=== PATIENT | female | born 1945 | race Caucasian/White ===

== ENCOUNTER 2019-11-16 17:23 | Emergency (ER) | payer OTHER ==
--- NOTE | 2019-11-16 17:37 | PDOC ---
History of Present Illness - General Stated Complaint: CHEST PAIN Time Seen by Provider: 11/16/19 17:37 History Source: Patient Exam Limitations: No Limitations - History of Present Illness Initial Comments: 11/16/19 17:38 74yF w PMHx CVA, afib, HTN, HLD, DM, cervical stenosis, covid PNA evan 07/04-07/27, MSSA bacteremia, pseudomonas VAP, evan sacral ulcers, chronic trach on vent presenting from [facility] w 4d intermittent L mild chest pain. Hx limited by pt's difficulty speaking w a trache. Pain not exertional/positional. Has been receiving tylenol PRN for chronic pain at the [facility]. Denies fever, cough, n/v, SOB, ABD pain, urinary/bowel mvmt changes. Evaluated on 11/12/19 for respiratory distress attributed to bronchitis, sputum cx grew proteus mirablis and Pseudomonas, DC home w azithromycin Past History - Medical History Allergies/Adverse Reactions: Allergies Allergy/AdvReac Type Severity Reaction Status Date / Time No Known Allergies Allergy Verified 11/12/19 23:24 Home Medications: Ambulatory Orders Acetaminophen 650 mg GT Q6H PRN 11/16/19 Apixaban [Eliquis] 5 mg GT BID 11/16/19 Ascorbate Calcium [Vitamin C] 500 mg GT DAILY 11/16/19 Aspirin 81 mg GT DAILY 11/16/19 Atorvastatin Ca [Lipitor] 20 mg GT HS 11/16/19 Azithromycin 250 mg GT DAILY 11/16/19 Lactobacillus Acidophilus [Acidophilus] 1 each GT DAILY 11/16/19 Multivitamin [Multivitamins] 1 each GT DAILY 11/16/19 Silver Sulfadiazine 1% Top Cr [Silvadene -] 1 applic TP DAILY 11/16/19 Zinc Sulfate [Zinc-220] 220 mg GT DAILY 11/16/19 - Psycho-Social/Smoking History Smoking History: Never smoked Review of Systems - Review of Systems Able to Perform ROS?: No (limited vocab) *Physical Exam - Physical Exam General Appearance: Yes: Nourished, Appropriately Dressed, Mild Distress HEENT: positive: EOMI, TYRELL, Normal Voice, Hearing Grossly Normal. negative: Scleral Icterus (R), Scleral Icterus (L) Respiratory/Chest: positive: Chest Tender (L chest), Lungs Clear, Normal Breath Sounds, Other (connected to trache). negative: Respiratory Distress, Crackles, Rales, Rhonchi, Stridor, Wheezing Cardiovascular: positive: Regular Rhythm, Regular Rate, S1, S2. negative: Murmu r Gastrointestinal/Abdominal: positive: Normal Bowel Sounds, Flat, Soft, Other (peg tube not infected). negative: Tender, Organomegaly Extremity: negative: Pedal Edema Integumentary: positive: Normal Color, Warm, Other (2x 3cm decubitus ulcers stage 3, stage 4, contracted hands) Neurologic: positive: Fully Oriented, Alert, Normal Response, Responsive Heart Score/ECG Review - History History: Slightly suspicious - Electrocardiogram EKG: Normal - Age Age: >/= 65 - Risk Factors Risk Factors Heart Score: Yes Hx Hypercholesterolemia, Yes Hx Hypertension, Yes Hx Diabetes Based on the list above the patient has:: >/=3 risk factors or Hx atherosclerotic disease - Troponin Troponin: </= normal limit - Score Heart Score - Total: 4 ED Treatment Course - LABORATORY CBC & Chemistry Diagram: 11/16/19 19:00 11/16/19 19:00 Medical Decision Making - Medical Decision Making 11/16/19 19:05 EKG - sinus tachycardia, HR 105, QTc 443, no ST changes CXR - clear lung walker WBC 19 w L shift, lactic 3.5 --- 74yF w PMHx CVA, afib, HTN, HLD, DM, cervical stenosis, covid PNA evan 07/04-07/27, MSSA bacteremia, pseudomonas VAP, evan sacral ulcers, chronic trach on vent presenting from [facility] w 4d intermittent L mild chest pain. 1. Chest pain likely ACS (HEART 4, 1st trop neg) vs costocondritis (chest tender to palptation) vs bronchitis 2. Sepsis (HR 117, RR 24, BP 91/58, lactic 3.5) without clear source of infection. decubitus ulcer vs tracheitis vs UTI (pos UA). No sign of PNA on CXR 3. Pt started making airway sounds on vent and complaining of difficulty breathing despite numerous suctioning and adjusting vent settings by RT. Still satting 100% on vent assist control RR 14/TV 400/ O2 35%/PEEP 5 Given tylenol, vanc, zosyn, 30mL/kg NS. Alternates between spontaneous vent and assist control Transfer to [facility] for possible tracheitis requiring ENT evaluation/management for chest pain, ACS r/o HEART 4, bounce back, sepsis, UA Accepted by ENT Dr Sanchez PCP Jenniffer Discharge - Discharge Information Problems reviewed: Yes Clinical Impression/Diagnosis: Bronchitis Chest pain Qualifiers: Chest pain type: unspecified Qualified Code(s): R07.9 - Chest pain, unspecified Sepsis Qualifiers: Sepsis type: sepsis due to unspecified organism Sepsis acute organ dysfunction status: without acute organ dysfunction Qualified Code(s): A41.9 - Sepsis, unspecified organism Decubitus ulcer Qualifiers: Pressure injury location: buttock Pressure injury stage: stage 4 Laterality: left Qualified Code(s): L89.324 - Pressure ulcer of left buttock, stage 4 Condition: Improved - Follow up/Referral - Patient Discharge Instructions - Post Discharge Activity
[2019-11-16] MEDS ORDERED: ACETAMINOPHEN 500 MG TABLET (FP) PEG ONE (18:11)
[2019-11-16] MEDS ORDERED: ACETAMINOPHEN 1000 MG/100 ML VIAL (NON FORMULARY) IVPB ONE (19:26)
[2019-11-16 19:31] LABS: BASO % 0.4 % (0-2.0); EOS % 0.2 % (0-4.5); HEMOGLOBIN 11.7 GM/dL (10.7-15.3); LYMPH % 10.9 % (8-40); MCH 25.1 pg (25.7-33.7); MCHC 31.7 g/dl (32.0-36.0); MEAN CELL VOLUME 79.3 fl (80-96); MEAN PLT VOLUME 9.1 fl (7.5-11.1); MONO % 4.5 % (3.8-10.2); PLATELET COUNT 455 K/MM3 (134-434); RBC 4.66 M/mm3 (3.60-5.2); RDW 18.3 % (11.6-15.6); WHITE BLOOD COUNT 19.2 K/mm3 (4.0-10.0)
[2019-11-16 19:40] LABS: INR 1.44 (0.83-1.09); PROTHROMBIN TIME (PATIENT) 17.1 SEC (9.7-13.0)
[2019-11-16] MEDS ORDERED: ACETAMINOPHEN INJECTION 100 ML IVPB ONE (19:42)
[2019-11-16 19:43] LABS: ACTIVATED PTT 31.9 SECONDS (25.2-36.5)
[2019-11-16 19:45] VITALS: BMI 33.1
[2019-11-16] MEDS ORDERED: PIPERACILLIN/TAZOB 4.5 GM 4.5 GM in DEXTROSE 5%-WATER 100 ML IVPB ONE (19:48)
[2019-11-16] MEDS ORDERED: VANCOMYCIN 1 GM in D5W (PRE-DOCKED) 1,000 MG/250 ML IVPB ONE (19:48)
[2019-11-16] MEDS ORDERED: SODIUM CHLORIDE IV ONE (19:50)
[2019-11-16] MEDS ORDERED: PIPERACILLIN/TAZOB 4.5 GM 4.5 GM/100 ML BAG IVPB ONE (19:53)
[2019-11-16] MEDS ORDERED: VANCOMYCIN 1 GRAM (PRE-DOCKED) 1,000 MG/250 ML BAG IVPB ONE (19:53)
[2019-11-16 19:55] LABS: VENOUS PH 7.354 (7.310-7.410)
[2019-11-16 19:58] LABS: ALBUMIN 3.4 g/dl (3.4-5.0); BILIRUBIN,TOTAL 0.2 mg/dL (0.2-1); CALCIUM 9.4 mg/dL (8.5-10.1); CREATININE 0.7 mg/dL (0.55-1.3); TOT PROT 8.1 g/dl (6.4-8.2)
--- NOTE | 2019-11-16 20:13 | PDOC ---
Attending Attestation - Resident Resident Name: Brandon Briggs - ED Attending Attestation I have performed the following: I have examined & evaluated the patient, The case was reviewed & discussed with the resident, I agree w/resident's findings & plan - HPI HPI: 11/16/19 20:10 see resident hpi - Physicial Exam PE: 11/16/19 20:11 see resident exam - Critical Care Time Total Critical Care Time: 60 Critical Care Statement: The care of this patient involved high complexity decision making to prevent further life threatening deterioration of the patient's condition and/or to evaluate & treat vital organ system(s) failure or risk of failure. - Medical Decision Making 11/16/19 20:11 74-year-old female, [facility]ambulatory from a [facility] with complaints of chest pain and recent visit to the emergency department discharged with diagnosis of bronchitis Patient found to have fever, elevated white blood cell count Chest x-ray shows no focal infiltrate Pending remainder of sepsis evaluation including lactic acid and urinalysis will cover with Zosyn and vancomycin due to tracheal cultures positive for Pseudomonas and Proteus Plan for admission to medical service Discharge - Discharge Information Problems reviewed: Yes Clinical Impression/Diagnosis: Bronchitis Chest pain Qualifiers: Chest pain type: unspecified Qualified Code(s): R07.9 - Chest pain, unspecified Sepsis Qualifiers: Sepsis type: sepsis due to unspecified organism Sepsis acute organ dysfunction status: without acute organ dysfunction Qualified Code(s): A41.9 - Sepsis, unspecified organism Decubitus ulcer Qualifiers: Pressure injury location: buttock Pressure injury stage: stage 4 Laterality: left Qualified Code(s): L89.324 - Pressure ulcer of left buttock, stage 4 Condition: Improved - Follow up/Referral - Patient Discharge Instructions - Post Discharge Activity
[2019-11-16 21:38] LABS: EPI CELLS 29 /uL (0-25.1); HYALINE CASTS 1 /uL (0-3.1); URINE APPEARANCE Error; URINE BACTERIA 1331 /uL (0-1359); URINE BILIRUBIN NEGATIVE (NEGATIVE); URINE COLOR YELLOW; URINE GLUCOSE (UA) NEGATIVE (NEGATIVE); URINE KETONE NEGATIVE (NEGATIVE); URINE LEUK ESTERASE 1+ (NEGATIVE); URINE NITRITE NEGATIVE (NEGATIVE); URINE PROTEIN NEGATIVE (NEGATIVE); URINE RBC 6 /uL (0-23.9); URINE WBC 36 /uL (0-25.8)
[2019-11-17 03:09] LABS: URINE CRYSTALS 4 CA OXALATE /hpf
[2019-11-17 04:24] VITALS: BP 114/56; PULSE 86; TEMP 100.2
--- NOTE | 2019-11-17 09:16 | EKG ---
Test Reason : Blood Pressure : / mmHG Vent. Rate : 105 BPM Atrial Rate : 105 BPM P-R Int : 154 ms QRS Dur : 070 ms QT Int : 336 ms P-R-T Axes : 047 -09 062 degrees QTc Int : 444 ms SINUS TACHYCARDIA NONSPECIFIC T WAVE ABNORMALITY ABNORMAL ECG WHEN COMPARED WITH ECG OF 13-NOV-2019 01:01, NO SIGNIFICANT CHANGE WAS FOUND Confirmed by LB WEBB MD ([id number]) on 11/17/2019 9:16:22 AM Referred By: Confirmed By:LB WEBB MD
== END 2019-11-17 01:00 | disposition short-term general hospital (02) ==
LOC: JER 17:23
PROC: 3E03329 Introduction of Other Anti-infective into Peripheral Vein, Percutaneous Approach (ICD-10-PCS; principal; 2019-11-16)
PROC: 3E033GC Introduction of Other Therapeutic Substance into Peripheral Vein, Percutaneous Approach (ICD-10-PCS; 2019-11-16)
PROC: 3E0337Z Introduction of Electrolytic and Water Balance Substance into Peripheral Vein, Percutaneous Approach (ICD-10-PCS; 2019-11-16)
DX: R07.9 Chest pain, unspecified (principal); A41.9 Sepsis, unspecified organism; L89.324 Pressure ulcer of left buttock, stage 4
CPT/HCPCS: 36415; 71045-TC-FY; 80053; 81003; 82803; 82962; 83605; 84484; 85025; 85610; 85730; 87040; 93005; 93010; 99285-25; J0131